=== PATIENT | female | born 1985 | race Caucasian/White ===

== ENCOUNTER → 2023-12-11 12:38 | Outpatient (REF) | payer BC, SELFPAY | LOC: WDC 12:38 | PROVIDERS: ATTENDING PHYSICIAN Obstetrics & Gynecology; FAMILY PHYSICIAN Nurse Practitioner | DX: Z12.31 Encounter for screening mammogram for malignant neoplasm of breast (principal); Z80.3 Family history of malignant neoplasm of breast | CPT/HCPCS: 77063; 77067 ==